=== PATIENT | male | born 1985 ===

== ENCOUNTER 2023-11-12 15:13 | Emergency (ER) | payer SELFPAY ==
[2023-11-12] MEDS: OLANZapine 5 MG Tab PO ONE (15:49)
[2023-11-12] MEDS: Sulfamethoxazole/Trimethoprim 800-160 MG Tab PO ONE (15:50)
== END 2023-11-12 15:50 ==
LOC: MW.ED 15:13
DX: F29 Unspecified psychosis not due to a substance or known physiological condition (principal); L03.116 Cellulitis of left lower limb; F19.10 Other psychoactive substance abuse, uncomplicated; Z75.8 Other problems related to medical facilities and other health care; Z79.899 Other long term (current) drug therapy
CPT/HCPCS: 99283; A9270-GY

== ENCOUNTER 2023-11-25 19:11 | Emergency (ER) | payer SELFPAY ==
[2023-11-25] MEDS: Acetaminophen 500 MG Tab PO ONE (20:08)
[2023-11-25] MEDS: Ibuprofen 800 MG Tab PO ONE (20:08)
[2023-11-25] MEDS ORDERED: OLANZapine 5 MG Tab.DIS PO ONE (20:25)
== END 2023-11-25 20:30 | disposition left against medical advice (07) ==
LOC: MW.ED 19:11
DX: S91.302A Unspecified open wound, left foot, initial encounter (principal); Z79.899 Other long term (current) drug therapy; X58.XXXA Exposure to other specified factors, initial encounter; Z75.8 Other problems related to medical facilities and other health care
CPT/HCPCS: 73630-26-LT; 73630-LT; 99283; A9270-GY

== ENCOUNTER 2023-11-25 21:08 | Emergency (ER) | payer SELFPAY ==
[2023-11-25 22:54] LABS: BASOPHILS ABSOLUTE AUTO 0.04 K/uL (0.00-0.20); BASOPHILS PERCENT AUTO 0.6 % (0.0-1.0); EOSINOPHILS ABSOLUTE AUTO 0.19 K/uL (0.00-0.45); EOSINOPHILS PERCENT AUTO 2.6 % (0.0-6.0); HEMATOCRIT 38.2 % (42.0-52.0); HEMOGLOBIN 13.2 g/dL (14.0-18.0); IMMATURE GRAN ABSOLUTE AUTO 0.02 K/uL (0.00-0.05); IMMATURE GRAN PERCENT AUTO 0.3 % (0.0-0.4); LYMPHOCYTES ABSOLUTE AUTO 2.32 K/uL (1.00-4.80); LYMPHOCYTES PERCENT AUTO 31.9 % (24.0-44.0); MEAN CORPUSCULAR HEMOGLOBIN 31.1 pg (28.0-32.0); MEAN CORPUSCULAR HGB CONC 34.6 g/dL (32.0-36.0); MEAN CORPUSCULAR VOLUME 90.1 fL (83.0-99.0); MEAN PLATELET VOLUME 9.5 fL (9.4-12.4); MONOCYTES ABSOLUTE AUTO 1.09 K/uL (0.00-0.80); NEUTROPHILS ABSOLUTE AUTO 3.61 K/uL (1.80-7.70); NEUTROPHILS PERCENT AUTO 49.6 % (41.0-71.0); PLATELET COUNT,PLT 274 K/uL (150-400); RED BLOOD CELL COUNT 4.24 M/uL (4.52-5.90); WHITE BLOOD CELL COUNT,WBC 7.27 K/uL (3.9-11.3)
[2023-11-25 23:18] LABS: INR 0.96 (0.86-1.11); PTT,PARTIAL THROMBOPLSTIN TIME 29.1 SEC (23.9-30.7)
[2023-11-25 23:25] LABS: AMPHETAMINES SCREEN, URINE PRESUMPTIVE POSITIVE (CUTOFF=500); BARBITURATE SCREEN,URINE NEGATIVE (CUTOFF=200); BENZODIAZEPINES SCREEN,URINE NEGATIVE (CUTOFF=150); BUPRENORPHINE SCREEN,URINE NEGATIVE (CUTOFF=10); METHADONE SCREEN, URINE NEGATIVE (CUTOFF=200); METHAMPHETAMINES SCREEN, URINE PRESUMPTIVE POSITIVE (CUTOFF=500); OXYCODONE SCREEN,URINE NEGATIVE (CUT0FF=100); PCP SCREEN,URINE NEGATIVE (CUTOFF=25); THC SCREEN,URINE 20 NG/ML PRESUMPTIVE POSITIVE (CUTOFF=50)
[2023-11-25 23:29] LABS: A/G RATIO 0.8 (0.9-1.6); ACETAMINOPHEN 5.8 ug/mL; ALBUMIN 3.2 g/dL (3.4-5.0); BILIRUBIN TOTAL 0.5 mg/dL (0.2-1.0); CALCIUM 8.5 mg/dL (8.5-10.1); CARBON DIOXIDE,CO2 21.4 mmol/L (21.0-32.0); CREATININE 1.4 mg/dL (0.8-1.3); EST CRCL DRUG DOSING (CG) 71.54 mL/min; MAGNESIUM 1.8 mg/dL (1.8-2.4); POTASSIUM,K 2.9 mmol/L (3.5-5.1); PROTEIN TOTAL,TP 7.4 g/dL (6.4-8.2); SALICYLATE 1.4 mg/dL (0.0-20.0); TSH ULTRASENSITIVE 3.08 uIU/mL (0.36-3.74)
[2023-11-26] MEDS: Potassium Chloride 20 MEQ Tab.ER PO ONE (00:02)
== END 2023-11-26 09:48 ==
LOC: MW.ED 21:08
DX: R45.851 Suicidal ideations (principal); F15.10 Other stimulant abuse, uncomplicated; Z79.899 Other long term (current) drug therapy; Z75.8 Other problems related to medical facilities and other health care
CPT/HCPCS: 36415; 80053; 80143; 80179; 80305-QW; 80307; 83735; 84443; 85025; 85610; 85730; 99285; A9270-GY; U0002